=== PATIENT | female | born 1950 | race Caucasian/White ===

== ENCOUNTER 2017-11-16 12:38 | Observation (INO) | payer MEDICARE, SELFPAY ==
[2017-11-16] VITALS (13 sets, daily range): BP systolic 111–145; BP diastolic 50–104; PULSE 68–79; RESP 9–18; TEMP 36.3–36.8; O2SAT 93–99; BMI 41.3; BMI 39.6
--- NOTE | 2017-11-16 12:49 | EKG12_ITS ---
Test Reason : STROKE Blood Pressure : / mmHG Vent. Rate : 075 BPM Atrial Rate : 075 BPM P-R Int : 188 ms QRS Dur : 088 ms QT Int : 402 ms P-R-T Axes : 054 010 047 degrees QTc Int : 448 ms Normal sinus rhythm Normal ECG Confirmed by MIGUELINA ZAMORANO MD ([id number]), primer expeditor and drier LUKE SUN ([id number]) on 11/18/2017 3:46:33 PM Referred By: KARLENE Confirmed By:MIGUELINA ZAMORANO MD
--- NOTE | 2017-11-16 12:49 | CT_ITS ---
STUDY: CT BRAIN WITHOUT CONTRAST REASON FOR EXAM: Female, 67 years old. Sudden onset of weakness. Normal speech. Fatigue. RADIATION DOSAGE (If Supplied By Facility): CTDIvol = ( 44.99 ) mGy, DLP = ( 762.36 ) mGycm TECHNIQUE: Transaxial CT imaging of the brain was performed without administration of intravenous contrast material. Coronal and sagittal reconstructions were performed. Individualized dose optimization techniques were used for this CT. COMPARISON: None. FINDINGS: Normal soft tissue structures. Normal calvarium. Normal size ventricles and extra-axial spaces for the patient's age. Normal white matter tracts of the cerebral hemispheres. Normal basal ganglia and thalami. Normal brainstem. Normal cerebellum. There is no intracranial hemorrhage. There are no findings of an acute ischemic infarction. Normal visualized paranasal sinuses. CT/Brain/Head without Contrast IMPRESSION: Normal unenhanced CT scan of the brain at this time. N.B. : The above information has been verbally conveyed by Brooks Alvarez MD to Leena Jo, Referring Physician, on 11/16/2017 13:09:23 (ET). Electronically Signed: Brooks Alvarez MD at 13:08 EDT , Service support , N.B. : The above information has been verbally conveyed by Brooks Alvarez MD to Leena Jo, Referring Physician, on 11/16/2017 13:09:23 (ET).
--- NOTE | 2017-11-16 12:49 | CM.ED ---
Social Work Note Stroke alert called, no family present. Staff made aware to contact if they arrive. Maria Eugenia Alvarenga, POLISHING WHEEL REPAIRER, HELICOPTER TECHNICIAN
[2017-11-16 12:51] LABS: Bedside Glucose 86 mg/dL (70-110)
--- NOTE | 2017-11-16 13:00 | RAD_ITS ---
STUDY: X-RAY CHEST REASON FOR EXAM: Female, 67 years old. Shortness of breath. TECHNIQUE: AP upright portable view. COMPARISON: None. FINDINGS: Mild pulmonary hypoinflation. The lungs are clear. There is no demonstrated pleural abnormality. Cardiac size cannot be accurately evaluated. It is suspiciously mildly enlarged. Normal mediastinum and jailene. Normal visualized pulmonary arteries. Normal visualized aortic arch and descending thoracic aorta. Limited visualization of the thoracic spine. Normal visualized ribs, clavicles, and shoulders. There is no demonstrated abnormality of the visualized soft tissue structures of the upper abdomen. RAD/Chest 1 View IMPRESSION: No acute cardiopulmonary pathology. Electronically Signed: Brooks Alvarez MD at 14:10 EDT , Service support ,
[2017-11-16] MEDS: 0.9% Normal Saline 1,000 ML 100 ML IV (13:14)
[2017-11-16 13:19] LABS: Absolute Lymphocyte Count 1.15 X10^3/ul (0.83-4.51); Absolute Neutrophil Count 4.5 X10^3/uL (2.0-7.7); Basophil# 0.02 X10^3/uL; Basophil% 0.3 % (0-1); Eosinophil# 0.24 X10^3/uL; Eosinophils% 3.6 % (0-5); Hematocrit 39.2 % (37-47); Hemoglobin 12.2 g/dl (12.0-15.0); Lymphocyte # 1.15 X10^3/ul (4.0); Lymphocyte % 17.3 % (19-41); Mean Corp Hgb Conc 31.1 g/gl (32-36); Mean Corpuscular Hgb 28.3 pg (27.0-32.0); Mean Platelet Vol. 10.5 fl (6.2-12.0); Monocyte# 0.69 X10^3/uL; Monocyte% 10.4 % (0-10); Neutrophil # 4.52 X10^3/uL (2.7-7.7); Neutrophil % 68.2 % (47-70); Platelet Count 227 K/mm3 (150-450); RBC Distribution Width CV 13.5 % (11.6-14.6); Red Blood Count 4.31 M/mm3 (4.2-5.4); White Blood Count 6.6 K/mm3 (4.4-11.0)
[2017-11-16 13:20] LABS: POSITIVE COUNT NO; POSITIVE DIFFERENTIAL NO; POSITIVE MORPHOLOGY NO
[2017-11-16 13:22] LABS: International Normalized Ratio 0.9; Prothrombin Time (Protime)PT. 11.9 SECONDS (11.7-14.9)
[2017-11-16 13:23] LABS: Partial Thromboplast Time 30.9 Seconds (24.1-36.2)
[2017-11-16 13:31] LABS: Anion Gap 6 (5-15); BUN 16 mg/dL (7-18); BUN/Creat Ratio 22.8 RATIO (10-20); Calcium,Total 8.5 mg/dL (8.5-10.1); Chloride 106 mmol/L (98-107); EST Glomerular Filtration Rate 89 mL/min (>60); Est Glom Filt Rate - Afr Amer 107 mL/min (>60); Estimated Creatinine Clearance 51.81 ml/min; Glucose 85 mg/dL (74-106); Sodium Level 141 mmol/L (136-145)
[2017-11-16 14:54] LABS: Valproic Acid (Depakene) Level 38 ug/mL (50-100)
--- NOTE | 2017-11-16 15:00 | HP.PCM_ITS ---
Problem List (1) Altered mental status Status: Acute (2) BMI greater than 40 Status: Chronic (3) Chronic pain syndrome Status: Chronic (4) Dyslipidemia Status: Chronic (5) Essential (primary) hypertension Status: Chronic History of Present Illness Date of Admission: 11/16/17 Chief Complaint: Altered mental status The patient is a 67 year old F with past medical history significant for chronic pain syndrome, dyslipidemia, hypertension who was brought to the emergency department with altered mental status. There was an initial suspicion of acute CVA with patient having developed sudden onset of slurred speech while with friends and family. Patient was apparently not moving all her extremities when first presented to the ED. She was taken to CAT scan for subsequent evaluation where his speech apparently returned to normal and was able to move all extremities. Head CT obtained was negative for acute CVA. However patient was found to be going in and out of sleep while being interviewed. There was a suspicion of possible accidental drug overdose with patient being on narcotics and Flexeril. Admitted to a monitored bed for subsequent management. Past Medical History Past Medical History (Chronic Problems): Chronic Problems BMI greater than 40 (Chronic) Chronic pain syndrome (Chronic) Dyslipidemia (Chronic) Essential (primary) hypertension (Chronic) Allergies shellfish derived Allergy (Verified 11/16/17 13:10) Unknown tuberculin,PPD,multi-puncture Allergy (Verified 11/16/17 13:10) Unknown Home Medications: Ambulatory Orders Medication Instructions Recorded Albuterol IH (ProAir) [Proair Hfa 1 - 2 puff INHALATION Q4H PRN PRN 11/16/17 (SP)Vent Pts] Amlodipine Besylate [Norvasc] 10 mg PO DAILY 11/16/17 Amoxicillin [Amoxil] 500 mg PO Q12H 11/16/17 Benztropine Mesylate 0.5 mg PO BID 11/16/17 Cyclobenzaprine [Flexeril] 10 mg PO TID PRN PRN 11/16/17 Divalproex Sodium [Depakote] 500 mg PO BID 11/16/17 Divalproex Sodium [Divalproex 1,500 mg PO QHS 11/16/17 Sodium ER] Fluoxetine HCl 40 mg PO DAILY 11/16/17 Omeprazole [Prilosec] 20 mg PO DAILY 11/16/17 Oxycodone HCl [Oxycodone HCl ER] 15 mg PO TID PRN 11/16/17 Potassium 99 mg PO DAILY 11/16/17 Pregabalin [Lyrica] 100 mg PO TID 11/16/17 Ropinirole HCl [Requip] 3 mg PO DAILY 11/16/17 Simvastatin [Zocor] 20 mg PO QHS 11/16/17 Sumatriptan Succinate [Imitrex] 100 mg PO .X1 PRN PRN 11/16/17 Smoking Status: Never smoker - *Family History Maternal History Items: No pertinent history Review of Systems Unable to obtain accurate/complete ROS d/t: Patient being lethargic VTE Information - Inpt Only VTE Present on Admission: No VTE Mechan Device Prophylaxis: Knee High ELIZABETH Hose VTE Pharm Prophylaxis ordered?: Yes Patient Problems: Active and Suspected Problems Altered mental status (Acute) Objective: GENERAL: Lethargic but arousable HEENT: Clear conjunctiva, dry oral mucosa NECK; supple, normal thyroid, no distended JVD. CHEST: Clear to auscultation bilaterally, HEART: Regular S1 S2, no audible murmurs ABDOMEN: soft, non-tender, normoactive bowel sounds, RECTAL: deferred EXTREMITIES: No edema, no clubbing, no cyanosis. LOCKER ROOM ATTENDANT: Lethargic but arousable and able to move all extremities SKIN: No Rash - Physical Exam Vital Signs Temp Pulse Resp BP Pulse Ox 98.2 F 77 11 L 132/72 H 95 11/16/17 12:39 11/16/17 14:38 11/16/17 14:38 11/16/17 14:38 11/16/17 14:38 Oxygen Flow Rate (L/min) 2 Oxygen Delivery Method Nasal Cannula Weight: 116 kg Body Mass Index (BMI) 41.3 Finger Stick Blood Glucose 86 Laboratory Tests Past 24 Hrs 11/16/17 11/16/17 11/16/17 12:40 12:40 12:40 WBC 6.6 RBC 4.31 Hgb 12.2 Hct 39.2 MCV 91.0 MCH 28.3 MCHC 31.1 L RDW 13.5 RDW Differential 44.0 H Plt Count 227 MPV 10.5 Immature Gran % (Auto) 0.200 Neut % (Auto) 68.2 Lymph % (Auto) 17.3 L Tyler % (Auto) 10.4 H Eos % (Auto) 3.6 Baso % (Auto) 0.3 Absolute Neuts (auto) 4.5 Absolute Lymphs (auto) 1.15 Total Counted Not Reportable PT 11.9 INR 0.9 APTT 30.9 Sodium 141 Potassium 4.0 Chloride 106 Carbon Dioxide 29.0 Anion Gap 6 BUN 16 Creatinine 0.70 Estim Creat Clear Calc 51.81 Est GFR (MDRD) Af Amer 107 Est GFR (MDRD) Non-Af 89 BUN/Creatinine Ratio 22.8 H Glucose 85 Calcium 8.5 Troponin I < 0.015 Valproic Acid 11/16/17 12:40 WBC RBC Hgb Hct MCV MCH MCHC RDW RDW Differential Plt Count MPV Immature Gran % (Auto) Neut % (Auto) Lymph % (Auto) Tyler % (Auto) Eos % (Auto) Baso % (Auto) Absolute Neuts (auto) Absolute Lymphs (auto) Total Counted PT INR APTT Sodium Potassium Chloride Carbon Dioxide Anion Gap BUN Creatinine Estim Creat Clear Calc Est GFR (MDRD) Af Amer Est GFR (MDRD) Non-Af BUN/Creatinine Ratio Glucose Calcium Troponin I Valproic Acid Pending POC Glucose 11/16/17 12:42 POC Glucose 86 Assessment/Plan All Active Problems Altered mental status (Acute) Patient is a 67-year-old lady with past medical history significant for hypertension, dyslipidemia chronic pain syndrome presented with altered level of sensorium 1. Altered mental status suspected to be secondary to possible accidental drug overdose patient is on both narcotics as well as Flexeril the suspected offending medications were held on admission admitted to monitored bed for observation 2. Obesity with BMI of 41.3 3. Hypertension-blood pressure controlled, home medications continued with dose adjustment as needed 4. Dyslipidemia-patient is on statin therapy, continued at home dose 5. DVT prophylaxis SC Lovenox Code Visit OBSV E&M: 95856 Initial observation care L3
--- NOTE | 2017-11-16 17:36 | ED.VISSUMM ---
- ER Visit Summary Date of Service: 11/16/17 Chief Complaint: Weakness and speech difficulty History of Present Illness: The patient is a 67 F called as a stroke team from prehospital report. Patient reportedly was out shopping and developed fatigue, slurred speech, and left arm weakness. At the time of my examination patient denies acute pain. She states the only pain she has is from prior injuries which she always has. She denies headache. She denies nausea or vomiting. She states her arms and legs just feel very heavy and weak. She feels very tired and sleepy. Past history is later reviewed includes TIA, hypertension, high cholesterol, DVT, and hypothyroidism. Patient states she had had multiple surgeries because of her prior injuries. She states that she has plates and screws in her face. She has chronic numbness in her face and has difficulty smiling at baseline. She has chronic dry mouth. Physical Examination: Vital signs are unremarkable. Patient is lying in bed with her eyes closed. She will open to command. Head and neck examination unremarkable. Heart is regular rate and rhythm. Lung sounds are clear. Abdomen is soft nontender. Neuro exam at the time of my evaluation significant for an NIH score of 11. She receives 2 points each for right arm and left arm weakness. She receives 3 points each for right and left leg weakness. She receives one point for dysarthria. She does not appear to have any difficulty finding words. Test Results: EKG is sinus at 75 with no sign of acute ischemia. CT head is normal. Chest x-ray is unremarkable. CBC and chemistry studies are normal. Coags normal. Troponin is less than 0.015. Blood sugar on arrival was 86. Emergency Department Course and Treatment: Patient was sent to CT scan. Nursing cloth napping supervisor who accompanied her did state that her speech seemed to be normal in CT, but after coming back to the room was noted to be slurred again. On my repeat evaluation patient is falling asleep during the interview. At this time she moves all 4 extremities. At this time patient appears to be more fatigued as opposed to anything focal related to stroke. There may have been a mixup in her medication causing her excessive drowsiness. Patient be admitted for further workup. Treatment Plan: [] Disposition: Admit Impression: 1. Weakness 2. Slurred speech This note was generated with WePayation software. It may contain incorrect words, spelling, and punctuation that were not noted in review of the chart prior to signing ED Disposition - Plan for ED Patient: Disposition: Acute Care Hospital [facility] Chief Complaint: Neuro S/Sx
--- NOTE | 2017-11-16 17:40 | ED.DCSUM_ITS ---
- ER Visit Summary Date of Service: 11/16/17 Chief Complaint: Weakness and speech difficulty History of Present Illness: The patient is a 67 F called as a stroke team from prehospital report. Patient reportedly was out shopping and developed fatigue, slurred speech, and left arm weakness. At the time of my examination patient denies acute pain. She states the only pain she has is from prior injuries which she always has. She denies headache. She denies nausea or vomiting. She states her arms and legs just feel very heavy and weak. She feels very tired and sleepy. Past history is later reviewed includes TIA, hypertension, high cholesterol, DVT , and hypothyroidism. Patient states she had had multiple surgeries because of her prior injuries. She states that she has plates and screws in her face. She has chronic numbness in her face and has difficulty smiling at baseline. She has chronic dry mouth. Physical Examination: Vital signs are unremarkable. Patient is lying in bed with her eyes closed. She will open to command. Head and neck examination unremarkable. Heart is regular rate and rhythm. Lung sounds are clear. Abdomen is soft nontender. Neuro exam at the time of my evaluation significant for an NIH score of 11. She receives 2 points each for right arm and left arm weakness. She receives 3 points each for right and left leg weakness. She receives one point for dysarthria. She does not appear to have any difficulty finding words. Test Results: EKG is sinus at 75 with no sign of acute ischemia. CT head is normal. Chest x-ray is unremarkable. CBC and chemistry studies are normal. Coags normal. Troponin is less than 0.015. Blood sugar on arrival was 86. Emergency Department Course and Treatment: Patient was sent to CT scan. Nursing shoe repair supervisor who accompanied her did state that her speech seemed to be normal in CT, but after coming back to the room was noted to be slurred again. On my repeat evaluation patient is falling asleep during the interview. At this time she moves all 4 extremities. At this time patient appears to be more fatigued as opposed to anything focal related to stroke. There may have been a mixup in her medication causing her excessive drowsiness. Patient be admitted for further workup. Treatment Plan: [] Disposition: Admit Impression: 1. Weakness 2. Slurred speech This note was generated with fitkitation software. It may contain incorrect words, spelling, and punctuation that were not noted in review of the chart prior to signing ED Disposition - Plan for ED Patient: Disposition: Acute Care Hospital [facility] Chief Complaint: Neuro S/Sx
[2017-11-16 18:01] LABS: Alcohol, Blood (Medical)-Serum < 3.0 mg/dL
[2017-11-16 18:08] LABS: AST(SGOT) 13 U/L (15-37); Alanine Aminotransfer ALT/SGPT 15 U/L (13-56); Albumin, Serum 3.1 g/dL (3.2-5.0); Alkaline Phosphatase 91 U/L (45-117); Bilirubin, Direct 0.13 mg/dL (0.00-0.30); Globulin 3.2 g/dL (2.2-4.2); Protein, Total 6.3 g/dL (6.4-8.2); Thyroid Stim Hormone (TSH) 1.39 uIU/mL (0.358-3.74)
--- NOTE | 2017-11-16 18:59 | NURSING ---
Patient does know some of her medications. Called patient's pharmacy to have medication list faxed to hospital. Pharmacy is closed.
--- NOTE | 2017-11-16 19:25 | NURSING ---
Called pharmacy and spoke with Balbir to inform him that patient is unable to bring in Benztropine from home.
--- NOTE | 2017-11-16 19:34 | NURSING ---
Addendum entered by Xin Estrada 11/16/17 20:03: Pt reports numbness to face. Not new or different. States right shoulder weakness is worse today. Original Note: Per pt, nerve issues to face, not new. Also, pt reports issues with right shoulder, not new.
[2017-11-16] MEDS: Benztropine 2 MG Tablet 0.5 MG PO (21:54)
[2017-11-16] MEDS: Divalproex (ER) 250 MG Tablet 1500 MG PO (21:56)
[2017-11-16] MEDS: Atorvastatin Calcium 10 MG Tablet PO (21:57)
[2017-11-16] MEDS: Pramipexole Di-HCl 1 MG Tablet 6 MG PO (21:58)
[2017-11-16] MEDS: Pregabalin 50 MG Capsule PO (21:58)
[2017-11-17] VITALS (12 sets, daily range): BP systolic 122–160; BP diastolic 56–78; PULSE 74–94; RESP 12–18; TEMP 36.8–36.9; O2SAT 93–95; BMI 39.6
[2017-11-17] MEDS: Acetaminophen 325 MG Tablet 650 MG PO ×2 (05:34→11:28)
[2017-11-17] MEDS: Pregabalin 50 MG Capsule PO ×3 (05:34→21:02)
[2017-11-17 06:13] LABS: Anion Gap 7 (5-15); BUN 15 mg/dL (7-18); BUN/Creat Ratio 30.2 RATIO (10-20); Calcium,Total 8.4 mg/dL (8.5-10.1); Chloride 108 mmol/L (98-107); Cholesterol 171 mg/dL (200); EST Glomerular Filtration Rate 132 mL/min (>60); Est Glom Filt Rate - Afr Amer 160 mL/min (>60); Estimated Creatinine Clearance 51.81 ml/min; Glucose 95 mg/dL (74-106); High Density Lipoprotein 102 mg/dL; Potassium 4.1 mmol/L (3.5-5.1); Sodium Level 144 mmol/L (136-145); Triglycerides 134 mg/dL; Very Low Density Lipoprotein 27 mg/dL (5-40)
[2017-11-17] MEDS: Divalproex Sodium 125 MG SPRINKLE 500 MG PO ×2 (08:22→16:49)
[2017-11-17] MEDS: Aspirin E.C. 81 MG Tablet PO (08:23)
[2017-11-17] MEDS: Benztropine 2 MG Tablet 0.5 MG PO ×2 (08:23→21:00)
[2017-11-17] MEDS: Enoxaparin 40 MG/0.4 ML Syringe SC (08:23)
[2017-11-17] MEDS: FLUoxetine 20 MG Capsule 40 MG PO (08:24)
[2017-11-17] MEDS: amLODIPine 10 MG Tablet PO (08:24)
[2017-11-17] MEDS: Pantoprazole Sodium 20 MG Tablet PO (08:24)
--- NOTE | 2017-11-17 09:40 | PN_ITS ---
Patient Problems: Active and Suspected Problems Altered mental status (Acute) Subjective: Patient seen much more awake today. Did discuss with patient events leading to hospitalization which she had no recollection she however did mention about the fact that she had recently been started on anti-seizure medication on account of suspected seizure spells. Did order for old records from [facility] and consultation placed to neurology. Also did discuss with the patient may need to scale back on her narcotics and to discontinue the Flexeril Objective: GENERAL: Cooperative HEENT: Clear conjunctiva, dry oral mucosa NECK; supple, normal thyroid, no distended JVD. CHEST: Clear to auscultation bilaterally, HEART: Regular S1 S2, no audible murmurs ABDOMEN: soft, non-tender, normoactive bowel sounds, RECTAL: deferred EXTREMITIES: No edema, no clubbing, no cyanosis. HEAD CORRECTION OFFICER: Awake, no lateralizing signs SKIN: No Rash Vitals/I&O's: Vital Signs Temp Pulse Resp BP Pulse Ox 98.4 F 80 17 145/73 H 94 11/17/17 08:00 11/17/17 08:00 11/17/17 08:00 11/17/17 08:00 11/17/17 08:00 Oxygen Flow Rate (L/min) 2 Oxygen Delivery Method Room Air Weight: 111.5 kg Body Mass Index (BMI) 39.6 Intake and Output for Last 24 Hours 11/15/17 11/16/17 11/17/17 23:59 23:59 23:59 Intake Total 1300 / 1300 0 / 0 Balance 1300 / 1300 0 / 0 Laboratory Results 11/16/17 17:07: Total Bilirubin 0.40, Direct Bilirubin 0.13, AST 13 L, ALT 15, Alkaline Phosphatase 91, Troponin I < 0.015, Total Protein 6.3 L, Albumin 3.1 L , Globulin 3.2, TSH 1.39 11/16/17 17:07: Ethyl Alcohol < 3.0 11/16/17 20:20: Troponin I < 0.015 11/16/17 22:45: Troponin I < 0.015 11/17/17 05:12: Sodium 144, Potassium 4.1, Chloride 108 H, Carbon Dioxide 29.0, Anion Gap 7, BUN 15, Creatinine 0.50 L, Estim Creat Clear Calc 51.81, Est GFR ( MDRD) Af Amer 160, Est GFR (MDRD) Non-Af 132, BUN/Creatinine Ratio 30.2 H, Glucose 95, Calcium 8.4 L, Triglycerides 134, Cholesterol 171, LDL Cholesterol 42, VLDL Cholesterol 27, HDL Cholesterol 102 Current Medications Acetaminophen (Tylenol) 650 mg PO Q6H PRN PRN PRN Reason: PAIN Last Admin: 11/17/17 05:34 Dose: 650 mg Amlodipine Besylate (Norvasc) 10 mg PO DAILY [facility] Last Admin: 11/17/17 08:24 Dose: 10 mg Aspirin (Ecotrin) 81 mg PO DAILY@0800 [facility] Last Admin: 11/17/17 08:23 Dose: 81 mg Atorvastatin Calcium (Lipitor) 10 mg PO QHS [facility] Last Admin: 11/16/17 21:57 Dose: 10 mg Benztropine Mesylate (Cogentin) 0.5 mg PO BID [facility] Last Admin: 11/17/17 08:23 Dose: 0.5 mg Divalproex Sodium (Depakote Er) 1,500 mg PO QHS [facility] Last Admin: 11/16/17 21:56 Dose: 1,500 mg [facility] Admin: 11/17/17 08:22 Dose: 500 mg Enoxaparin Sodium (Lovenox) 40 mg SC DAILY@1000 [facility] Last Admin: 11/17/17 08:23 Dose: 40 mg Fluoxetine HCl (Prozac) 40 mg PO DAILY [facility] Last Admin: 11/17/17 08:24 Dose: 40 mg Magnesium Hydroxide (Milk Of Magnesia) 30 ml PO DAILY PRN PRN Reason: Constipation Pantoprazole Sodium (Protonix) 20 mg PO DAILY [facility] Last Admin: 11/17/17 08:24 Dose: 20 mg Pramipexole Dihydrochloride (Mirapex) 6 mg PO QHS [facility] Last Admin: 11/16/17 21:58 Dose: 6 mg Pregabalin (Lyrica) 50 mg PO TID [facility] Last Admin: 11/17/17 05:34 Dose: 50 mg Sodium Chloride () 5 - 30 ml IV UD PRN PRN Reason: SALINE FLUSH Medical Necessity - Tobacco Use Smoking Status: Never smoker Tobacco Use: Non-smoker Assessment/Plan All Active Problems Altered mental status (Acute) Patient is a 67-year-old lady with past medical history significant for hypertension, dyslipidemia chronic pain syndrome presented with altered level of sensorium 1. Altered mental status suspected to be secondary to possible accidental drug overdose patient is on both narcotics as well as Flexeril the suspected offending medications were held on admission admitted to monitored bed for observation MRI MRA ordered to rule out acute CVA. Consultation was also placed to neurology given patient history of underlying seizure 2. Disorder patient is on antiseizure medications discontinued. Also did request for old records from [place] 3. Hypertension-blood pressure controlled, home medications continued with dose adjustment as needed 4. Dyslipidemia-patient is on statin therapy, continued at home dose 5. Obesity with BMI of 41.3 6. DVT prophylaxis SC Lovenox Code Visit Inpatient E&M: 48113 Subs Hosp L3 OBSV E&M: 55515 Subsequent observation care L3
--- NOTE | 2017-11-17 12:50 | NURSING ---
RN called and spoke with pharmacist at [facility]. Patient does not get RA medication filled at that location. RN spoke to patient about this and patient states medications are only filled at [facility].
[2017-11-17] MEDS: oxyCODONE 5 MG Tablet PO (16:49)
[2017-11-17] MEDS: 0.9% NaCl Peripheral Flush Adult/Peds IV (16:55)
[2017-11-17] MEDS: Divalproex (ER) 250 MG Tablet 1500 MG PO (21:01)
[2017-11-17] MEDS: Atorvastatin Calcium 10 MG Tablet PO (21:02)
[2017-11-17] MEDS: Pramipexole Di-HCl 1 MG Tablet 6 MG PO (21:02)
[2017-11-18] VITALS (7 sets, daily range): BP systolic 135–150; BP diastolic 77–92; PULSE 75–92; RESP 16–20; TEMP 36.6–36.9; O2SAT 92–95; BMI 39.6
[2017-11-18] MEDS: Acetaminophen 325 MG Tablet 650 MG PO ×2 (00:36→10:32)
--- NOTE | 2017-11-18 00:36 | NURSING ---
Chronic numbness to face per pt.
[2017-11-18] MEDS: oxyCODONE 5 MG Tablet PO ×2 (04:42→10:54)
[2017-11-18] MEDS: Pregabalin 50 MG Capsule PO ×2 (05:26→15:00)
--- NOTE | 2017-11-18 08:00 | MRI_ITS ---
STUDY: MRA NECK WITH AND WITHOUT CONTRAST REASON FOR EXAM: Female, 67 years old. cva, lt arm weakness, altered mental status, slurred speech, hx seizure. TECHNIQUE: 3-D [id number] (TOF) imaging was performed in an 1.5 T MRI scanner. 10 ml of Gadavist was administered for the contrast enhanced images. COMPARISON: None. FINDINGS: RIGHT CAROTID ARTERIES: Normal right common carotid artery (CCA). There is suspected mild atherosclerotic plaque formation with minimal narrowing of the right carotid bulb. There is suspected mild atherosclerotic plaque formation of the origin of the right internal carotid artery with approximately 50% cross sectional diameter stenosis. Normal visualized cervical portion of the right internal carotid artery. Normal origin of the right external carotid artery (ECA). LEFT CAROTID ARTERIES: Normal left common carotid artery (CCA). Normal left common carotid bulb. Normal origin of the left internal carotid (ICA) artery without a hemodynamically significant stenosis. Normal visualized cervical portion of the left internal carotid artery. Normal origin of the left external carotid artery (ECA). VERTEBRAL ARTERIES: Normal antegrade flow within the bilateral vertebral artery without a hemodynamically significant stenosis. MRI/MRA Neck WITH and W/O Contrast IMPRESSION: Suspected 50% stenosis of the right ICA. Further evaluation with sonography can be obtained. Electronically Signed: Yina Magaña MD at 11:22 EDT Tel , Service support ,
--- NOTE | 2017-11-18 08:00 | MRI_ITS ---
STUDY: MRI BRAIN WITHOUT CONTRAST REASON FOR EXAM: Female, 67 years old. cva, lt arm weakness, altered mental status, slurred speech, hx seizure. TECHNIQUE: Standardized multiplanar fat and water weighted pulse sequences were obtained. COMPARISON: None. FINDINGS: Normal size of the ventricles and extra-axial spaces for the patient's age. Normal white matter tracts of the supratentorial brain. Normal bilateral basal ganglia. Normal thalami. There is no extra-axial fluid accumulation. Normal flow voids within the major intracranial circulation suggesting patency by spin echo criteria. Normal sella turcica, pituitary gland, infundibular stalk, optic chiasm and hypothalamus. Normal tectal plate and pineal gland. Normal midbrain, ginny and medulla. Normal cerebellum. Normal basal cisterns. Normal bilateral temporal bones. Normal bilateral internal auditory canals. No demonstrated orbital abnormality, within the constraints of a routine brain study. Normal visualized paranasal sinuses. Normal calvarium and skull base. Normal visualized soft tissue structures. Normal visualized upper cervical spine. MRI/Brain without Contrast IMPRESSION: Unremarkable unenhanced MRI of the brain. Electronically Signed: Yina Magaña MD at 11:08 EDT Tel , Service support ,
--- NOTE | 2017-11-18 08:00 | MRI_ITS ---
STUDY: MRA OF THE HEAD WITHOUT CONTRAST REASON FOR EXAM: Female, 67 years old. cva, lt arm weakness, altered mental status, slurred speech, hx seizure. TECHNIQUE: 3-D [id number]-tp-[id number] (TOF) imaging was performed with MIPs. The study was performed unenhanced. COMPARISON: None. FINDINGS: Normal bilateral petrous carotid arteries. Normal right cavernous carotid artery with a normal supraclinoid bifurcation. Normal left cavernous carotid artery with a normal supraclinoid bifurcation. Normal right A1 segments of the anterior cerebral artery. Normal left A1 segments of the anterior cerebral artery. Normal intact anterior communicating artery (ACOM). Normal bilateral A2 segments of the anterior cerebral arteries. Normal right M1 and M2 segments of the middle cerebral arteries, with a normal M1 bifurcation. Normal left M1 and M2 segments of the middle cerebral arteries, with a normal M1 bifurcation. Normal right posterior communicating artery (PCOM). Normal left posterior communicating artery (PCOM). Normal bilateral vertebral arteries. Normal basilar artery with a normal basilar bifurcation. The visualized bilateral superior cerebellar (SCA) arteries are normal. Normal bilateral P1, P2 and visualized P3 segments of the posterior cerebral arteries. There is no demonstrated aneurysm of the [place]. There is no major vessel occlusion or hemodynamically significant stenosis. There is no demonstrated abnormality of the visualized brain. MRI/MRA Head ONLY without Contrast IMPRESSION: Normal MRA of the head Electronically Signed: Yina Magaña MD at 11:16 EDT Tel , Service support ,
--- NOTE | 2017-11-18 09:52 | PCM.CONS.GEN ---
Reason for Consult Date of Consultation: 11/18/17 Reason for Consultation: altered mental status History of Present Illness: The patient is a 67 year old female admitted for spells. reports spells started 1 1/2 yrs ago. has history of head injury the last of which was 15 yrs ago. saw josefina yanes, started depakote, which was then discontinued for unclear reasons. spells then recurred two months ago, after being event free for one year. depakote restarted about 4 weeks ago with no apparent benefit. no apparent trigger. reports 10 min prior to the event feels weird and tired then has speech abnormality, then may lose consciousness. reports left leg trembles and bounces. also has intercurrent left lower extremity cellulitis treated intermittently for 6 months. reports the events are similar. no tongue biting or loss of continence. reports workup has included eeg and mri which was unrevealing including an extended home eeg monitoring. reports taking oxycontin (via pain management) but failed a urine alcohol test and has been told oxycontin will no longer be prescribed. reports doesnt drink. per admit h&p:The patient is a 67 year old F with past medical history significant for chronic pain syndrome, dyslipidemia, hypertension who was brought to the emergency department with altered mental status. There was an initial suspicion of acute CVA with patient having developed sudden onset of slurred speech while with friends and family. Patient was apparently not moving all her extremities when first presented to the ED. She was taken to CAT scan for subsequent evaluation where his speech apparently returned to normal and was able to move all extremities. Head CT obtained was negative for acute CVA. However patient was found to be going in and out of sleep while being interviewed. There was a suspicion of possible accidental drug overdose with patient being on narcotics and Flexeril. Admitted to a monitored bed for subsequent management. Past Medical History Past Medical History (Chronic Problems): Chronic Problems BMI greater than 40 (Chronic) Chronic pain syndrome (Chronic) Dyslipidemia (Chronic) Essential (primary) hypertension (Chronic) Allergies shellfish derived Allergy (Verified 11/16/17 13:10) Unknown tuberculin,PPD,multi-puncture Allergy (Verified 11/16/17 13:10) Unknown Home Medications: Ambulatory Orders Medication Instructions Recorded Albuterol IH (ProAir) [Proair Hfa 1 - 2 puff INHALATION Q4H PRN PRN 11/16/17 (SP)Vent Pts] Amlodipine Besylate [Norvasc] 10 mg PO DAILY 11/16/17 Amoxicillin [Amoxil] 500 mg PO Q12H 11/16/17 Benztropine Mesylate 0.5 mg PO BID 11/16/17 Cyclobenzaprine [Flexeril] 10 mg PO TID PRN PRN 11/16/17 Divalproex Sodium [Depakote] 500 mg PO BID 11/16/17 Divalproex Sodium [Divalproex 1,500 mg PO QHS 11/16/17 Sodium ER] Fluoxetine HCl 40 mg PO DAILY 11/16/17 Omeprazole [Prilosec] 20 mg PO DAILY 11/16/17 Oxycodone HCl [Oxycodone HCl ER] 15 mg PO TID PRN 11/16/17 Potassium 99 mg PO DAILY 11/16/17 Pregabalin [Lyrica] 100 mg PO TID 11/16/17 Ropinirole HCl [Requip] 3 mg PO DAILY 11/16/17 Simvastatin [Zocor] 20 mg PO QHS 11/16/17 Sumatriptan Succinate [Imitrex] 100 mg PO .X1 PRN PRN 11/16/17 traZODone [Desyrel] 100 mg PO QHS 11/16/17 Surgical History: - - 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 Smoking Status: Never smoker Tobacco Use: Non-smoker - *Family History Maternal History Items: No pertinent history Review of Systems Constitutional: Denies: Chills, Fever, Weight Change HEENT: Denies: Head Aches, Sinus Congestion, Sinus Drainage Cardiovascular: Denies: Chest Pain, Palpitations Respiratory: Denies: Cough, Shortness of breath at rest, Sputum production Gastrointestinal: Denies: Abdominal Pain, Nausea, Vomiting Genitourinary: Denies: Dysuria Musculoskeletal: Denies: Joint Pain, Joint Tenderness Skin: Denies: Rash, Wounds Neurological: Denies: Numbness, Tingling, Focal weakness Psychiatric: Denies: Anxiety, Depression, Homicidal Ideations, Suicidal Ideations Hematologic/ Lymphatic: Denies: Easy Bruising, Easy Bleeding Patient Problems: Active and Suspected Problems Altered mental status (Acute) - Physical Exam General: Alert, Oriented x3, Cooperative HEENT: Atraumatic, PERRLA, EOMI, Normocephalic Neurological: Cranial nerves II-XII grossly intact Psych/Mental Status: Normal Affect, Appropriate Vital Signs Temp Pulse Resp BP Pulse Ox 36.7 C 79 18 150/90 H 95 11/18/17 04:22 11/18/17 07:43 11/18/17 04:22 11/18/17 04:22 11/18/17 04:22 Oxygen Flow Rate (L/min) 2 Oxygen Delivery Method Room Air Weight: 111.5 kg Body Mass Index (BMI) 39.6 Intake and Output for Last 24 Hours 11/16/17 11/17/17 11/18/17 23:59 23:59 23:59 Intake Total 1300 / 1300 2071 / 2071 891 / 891 Balance 1300 / 1300 2071 891 / 891 Current Home Med List Medication Instructions Recorded Confirmed Type Albuterol IH (ProAir) [Proair Hfa 1 - 2 puff INHALATION Q4H PRN PRN 11/16/17 11/16/17 History (SP)Vent Pts] Amlodipine Besylate [Norvasc] 10 mg PO DAILY 11/16/17 11/16/17 History Amoxicillin [Amoxil] 500 mg PO Q12H 11/16/17 11/16/17 History Benztropine Mesylate 0.5 mg PO BID 11/16/17 11/16/17 History Cyclobenzaprine [Flexeril] 10 mg PO TID PRN PRN 11/16/17 11/16/17 History Divalproex Sodium [Depakote] 500 mg PO BID 11/16/17 11/16/17 History Divalproex Sodium [Divalproex 1,500 mg PO QHS 11/16/17 11/16/17 History Sodium ER] Fluoxetine HCl 40 mg PO DAILY 11/16/17 11/16/17 History Omeprazole [Prilosec] 20 mg PO DAILY 11/16/17 11/16/17 History Oxycodone HCl [Oxycodone HCl ER] 15 mg PO TID PRN 11/16/17 11/16/17 History Potassium 99 mg PO DAILY 11/16/17 11/16/17 History Pregabalin [Lyrica] 100 mg PO TID 11/16/17 11/16/17 History Ropinirole HCl [Requip] 3 mg PO DAILY 11/16/17 11/16/17 History Simvastatin [Zocor] 20 mg PO QHS 11/16/17 11/16/17 History Sumatriptan Succinate [Imitrex] 100 mg PO .X1 PRN PRN 11/16/17 11/16/17 History traZODone [Desyrel] 100 mg PO QHS 11/16/17 11/16/17 History Current Medications Generic Name Dose Route Start Last Admin Trade Name Freq PRN Reason Stop Dose Admin Acetaminophen 650 mg 11/17/17 04:26 11/18/17 00:36 Tylenol PO 650 mg Q6H PRN PRN Administration PAIN Amlodipine Besylate 10 mg 11/17/17 10:00 11/17/17 08:24 Norvasc PO 10 mg DAILY EVON Administration Aspirin 81 mg 11/17/17 08:00 11/17/17 08:23 Ecotrin PO 81 mg DAILY@0800 EVON Administration Atorvastatin Calcium 10 mg 11/16/17 22:00 11/17/17 21:02 Lipitor PO 10 mg QHS EVON Administration Benztropine Mesylate 0.5 mg 11/16/17 22:00 11/17/17 21:00 Cogentin PO 0.5 mg BID EVON Administration Divalproex Sodium 1,500 mg 11/16/17 22:00 11/17/17 21:01 Depakote Er PO 1,500 mg QHS EVON Administration Divalproex Sodium 500 mg 11/17/17 08:00 11/17/17 16:49 Depakote Sprinkles [facility] Administration Enoxaparin Sodium 40 mg 11/17/17 10:00 11/17/17 08:23 Lovenox SC 40 mg DAILY@1000 EVON Administration Fluoxetine HCl 40 mg 11/17/17 10:00 11/17/17 08:24 Prozac PO 40 mg DAILY EVON Administration Magnesium Hydroxide 30 ml 11/16/17 16:22 Milk Of Magnesia PO DAILY PRN Constipation Oxycodone HCl 5 mg 11/17/17 15:41 11/18/17 04:42 Oxyir PO 5 mg Q6H PRN PRN Administration PAIN Pantoprazole Sodium 20 mg 11/17/17 10:00 11/17/17 08:24 Protonix PO 20 mg DAILY EVON Administration Pramipexole Dihydrochloride 6 mg 11/16/17 22:00 11/17/17 21:02 Mirapex PO 6 mg QHS EVON Administration Pregabalin 50 mg 11/16/17 22:00 11/18/17 05:26 Lyrica PO 50 mg TID EVON Administration Sodium Chloride 5 - 30 ml 11/16/17 16:36 11/17/17 16:55 IV 10 ml UD PRN Administration SALINE FLUSH Assessment/Plan All Active Problems Altered mental status (Acute) seizure vs syncope, complicated history, confounded by narcotic use agrees to taper of narcotics flexeril taper if feasible continue depakote follow with dr yanes as planned.
--- NOTE | 2017-11-18 10:00 | NURSING ---
Vitals complete at this time. patient was off floor for MRI this AM, was then seen by Dr. Mota. Unable to get vitals until this time.
[2017-11-18] MEDS: Benztropine 2 MG Tablet 0.5 MG PO (10:32)
[2017-11-18] MEDS: Pantoprazole Sodium 20 MG Tablet PO (10:33)
[2017-11-18] MEDS: Divalproex Sodium 125 MG SPRINKLE 500 MG PO (10:33)
[2017-11-18] MEDS: Enoxaparin 40 MG/0.4 ML Syringe SC (10:33)
[2017-11-18] MEDS: FLUoxetine 20 MG Capsule 40 MG PO (10:33)
[2017-11-18] MEDS: amLODIPine 10 MG Tablet PO (10:33)
[2017-11-18] MEDS: Aspirin E.C. 81 MG Tablet PO (10:33)
--- NOTE | 2017-11-18 14:00 | DCINST_ITS ---
- Discharge Diagnoses Current Active Problems: Current Active and Chronic Problems Altered mental status (Acute) BMI greater than 40 (Chronic) Chronic pain syndrome (Chronic) Dyslipidemia (Chronic) Essential (primary) hypertension (Chronic) You will use the following diet at home:: No restrictions Your food should be the consistency of: Regular Your liquids should be the consistency of: Regular/Thin Discharge Activity: Return to Normal Activity, May Not Drive - until ok'd by Dr. Escudero. Call your doctor if you observe: - - confusion. unresponsiveness. Allergies/Adverse Reactions: Allergies shellfish derived Allergy (Verified 11/16/17 13:10) Unknown tuberculin,PPD,multi-puncture Allergy (Verified 11/16/17 13:10) Unknown Medications to take at Discharge Albuterol IH (ProAir) [Proair Hfa] 1 - 2 puff INHALATION Q4H PRN PRN 11/16/17 Amlodipine Besylate [Norvasc] 10 mg PO DAILY 11/16/17 Benztropine Mesylate 0.5 mg PO BID 11/16/17 Divalproex Sodium [Depakote] 500 mg PO BID 11/16/17 Divalproex Sodium [Divalproex Sodium ER] 1,500 mg PO QHS 11/16/17 Fluoxetine HCl 40 mg PO DAILY 11/16/17 Omeprazole [Prilosec] 20 mg PO DAILY 11/16/17 Potassium 99 mg PO DAILY 11/16/17 Pregabalin [Lyrica] 100 mg PO TID 11/16/17 Ropinirole HCl [Requip] 3 mg PO DAILY 11/16/17 Simvastatin [Zocor] 20 mg PO QHS 11/16/17 Sumatriptan Succinate [Imitrex] 100 mg PO .X1 PRN PRN 11/16/17 traZODone [Desyrel] 100 mg PO QHS 11/16/17 Oxycodone HCl [Oxycodone HCl ER] 15 mg PO DAILY PRN 1 Days #1 11/18/17 Primary Care Physician: Care Physician,No Primary [Primary Care Provider] - Test Results: Test results from this visit will be discussed in further detail at your follow- up appointment, if applicable. Please Follow Up With: Dr. Anthony Escudero When: 2-4 weeks Proposed Discharge Date: 11/18/17
--- NOTE | 2017-11-18 14:05 | PCM.DC.SUM ---
Discharge Date and Diagnosis - Problem List Patient Problems: Active and Suspected Problems Altered mental status (Acute) Date of Admission: 11/16/17 Date of Discharge: 11/18/17 - Primary Discharge Diagnosis Active and Suspected Problems Altered mental status (Acute) - Secondary Discharge Diagnosis Chronic Problems BMI greater than 40 (Chronic) Chronic pain syndrome (Chronic) Dyslipidemia (Chronic) Essential (primary) hypertension (Chronic) Hospital Course and Treatment Imaging Results: 11/18/17 08:00 Brain without Contrast [MRI] Stat MRA Head ONLY without Contrast [MRI] Stat MRA Neck WITH and W/O Contrast [MRI] Stat Clinical Impression(s) from Imaging Studies Brain CT 11/16/17 12:49 IMPRESSION: Normal unenhanced CT scan of the brain at this time. N.B. : The above information has been verbally conveyed by Brooks Alvarez MD to Leena Jo, Referring Physician, on 11/16/2017 13:09:23 (ET). Electronically Signed: Brooks Alvarez MD at 13:08 EDT , Service support , N.B. : The above information has been verbally conveyed by Brooks Alvarez MD to Leena Jo, Referring Physician, on 11/16/2017 13:09:23 (ET). Chest X-Ray 11/16/17 13:00 IMPRESSION: No acute cardiopulmonary pathology. Electronically Signed: Brooks Alvarez MD at 14:10 EDT , Service support , Brain MRI 11/18/17 08:00 IMPRESSION: Unremarkable unenhanced MRI of the brain. Electronically Signed: Yina Magaña MD at 11:08 EDT Tel , Service support , Head MRA 11/18/17 08:00 IMPRESSION: Normal MRA of the head Electronically Signed: Yina Magaña MD at 11:16 EDT Tel , Service support , Neck MRA 11/18/17 08:00 IMPRESSION: Suspected 50% stenosis of the right ICA. Further evaluation with sonography can be obtained. Electronically Signed: Yina Magaña MD at 11:22 EDT Tel , Service support , Operations: None Procedures: None Summary of Care Provided: The patient is a 67 year old F presents with change in mental status. Patient developed slurred speech with family. Patient was not moving all her extremities apparently patient was admitted and underwent a neurologic workup that included an MRI, MRA of the head neck. All those tests were negative. Patient was seen in consultation by Dr. Mota, of neurology. His feeling is that the patient may toxic encephalopathy possibly related with her medications or possible seizure given her history. The recommendation has been made to taper her medications. I discussed with patient about stopping her Flexeril altogether and to wean her oxycodone to off. Patient was in agreement to that plan. Patient already has an established neurologist, Dr. Anthony Escudero, to whom she will follow-up with in the next 2-4 weeks. Given the fact that we cannot rule out a seizure patient is advised to avoid driving until formally cleared by her neurologist. On exam, patient is no acute distress and afebrile. She has a normal gait. She is alert and oriented ?3. [] Discharge Diet: No Restrictions Discharge Activity: Return to Normal Activity, May Not Drive - until ok'd by Dr. Escudero. Call your doctor if you observe: - - confusion. unresponsiveness. Home Medications: Medications to take at Discharge Albuterol IH (ProAir) [Proair Hfa] 1 - 2 puff INHALATION Q4H PRN PRN 11/16/17 Amlodipine Besylate [Norvasc] 10 mg PO DAILY 11/16/17 Benztropine Mesylate 0.5 mg PO BID 11/16/17 Divalproex Sodium [Depakote] 500 mg PO BID 11/16/17 Divalproex Sodium [Divalproex Sodium ER] 1,500 mg PO QHS 11/16/17 Fluoxetine HCl 40 mg PO DAILY 11/16/17 Omeprazole [Prilosec] 20 mg PO DAILY 11/16/17 Potassium 99 mg PO DAILY 11/16/17 Pregabalin [Lyrica] 100 mg PO TID 11/16/17 Ropinirole HCl [Requip] 3 mg PO DAILY 11/16/17 Simvastatin [Zocor] 20 mg PO QHS 11/16/17 Sumatriptan Succinate [Imitrex] 100 mg PO .X1 PRN PRN 11/16/17 traZODone [Desyrel] 100 mg PO QHS 11/16/17 Oxycodone HCl [Oxycodone HCl ER] 15 mg PO DAILY PRN 1 Days #1 11/18/17 Primary Care Physician: Care Physician,No Primary [Primary Care Provider] - Please Follow Up With: Dr. Anthony Escudero When: 2-4 weeks Disposition: Home Minutes spent on discharge:: 32 Patient Condition:: Good Medical Necessity - Tobacco Use Smoking Status: Never smoker Tobacco Use: Non-smoker Meaningful Use Info Meaningful Use Diagnoses (Choose all that apply): None applicable Code Visit Inpatient E&M: 24749 Disch Hosp
--- NOTE | 2017-11-18 14:09 | DS.PCM_ITS ---
Discharge Date and Diagnosis - Problem List Patient Problems: Active and Suspected Problems Altered mental status (Acute) Date of Admission: 11/16/17 Date of Discharge: 11/18/17 - Primary Discharge Diagnosis Active and Suspected Problems Altered mental status (Acute) - Secondary Discharge Diagnosis Chronic Problems BMI greater than 40 (Chronic) Chronic pain syndrome (Chronic) Dyslipidemia (Chronic) Essential (primary) hypertension (Chronic) Hospital Course and Treatment Imaging Results: 11/18/17 08:00 Brain without Contrast [MRI] Stat MRA Head ONLY without Contrast [MRI] Stat MRA Neck WITH and W/O Contrast [MRI] Stat Clinical Impression(s) from Imaging Studies Brain CT 11/16/17 12:49 IMPRESSION: Normal unenhanced CT scan of the brain at this time. N.B. : The above information has been verbally conveyed by Brooks Alvarez MD to Leena Jo, Referring Physician, on 11/16/2017 13:09:23 (ET). Electronically Signed: Brooks Alvarez MD at 13:08 EDT , Service support , N.B. : The above information has been verbally conveyed by Brooks Alvarez MD to Leena Jo, Referring Physician, on 11/16/2017 13:09:23 (ET). Chest X-Ray 11/16/17 13:00 IMPRESSION: No acute cardiopulmonary pathology. Electronically Signed: Brooks Alvarez MD at 14:10 EDT , Service support , Brain MRI 11/18/17 08:00 IMPRESSION: Unremarkable unenhanced MRI of the brain. Electronically Signed: Yina Magaña MD at 11:08 EDT Tel , Service support , Head MRA 11/18/17 08:00 IMPRESSION: Normal MRA of the head Electronically Signed: Yina Magaña MD at 11:16 EDT Tel , Service support , Neck MRA 11/18/17 08:00 IMPRESSION: Suspected 50% stenosis of the right ICA. Further evaluation with sonography can be obtained. Electronically Signed: Yina Magaña MD at 11:22 EDT Tel , Service support , Operations: None Procedures: None Summary of Care Provided: The patient is a 67 year old F presents with change in mental status. Patient developed slurred speech with family. Patient was not moving all her extremities apparently patient was admitted and underwent a neurologic workup that included an MRI, MRA of the head neck. All those tests were negative. Patient was seen in consultation by Dr. Mota, of neurology. His feeling is that the patient may toxic encephalopathy possibly related with her medications or possible seizure given her history. The recommendation has been made to taper her medications. I discussed with patient about stopping her Flexeril altogether and to wean her oxycodone to off. Patient was in agreement to that plan. Patient already has an established neurologist, Dr. Anthony Escudero, to whom she will follow-up with in the next 2-4 weeks. Given the fact that we cannot rule out a seizure patient is advised to avoid driving until formally cleared by her neurologist. On exam, patient is no acute distress and afebrile. She has a normal gait. She is alert and oriented ?3. [] Discharge Diet: No Restrictions Discharge Activity: Return to Normal Activity, May Not Drive - until ok'd by Dr. Escudero. Call your doctor if you observe: - - confusion. unresponsiveness. Home Medications: Medications to take at Discharge Albuterol IH (ProAir) [Proair Hfa] 1 - 2 puff INHALATION Q4H PRN PRN 11/16/17 Amlodipine Besylate [Norvasc] 10 mg PO DAILY 11/16/17 Benztropine Mesylate 0.5 mg PO BID 11/16/17 Divalproex Sodium [Depakote] 500 mg PO BID 11/16/17 Divalproex Sodium [Divalproex Sodium ER] 1,500 mg PO QHS 11/16/17 Fluoxetine HCl 40 mg PO DAILY 11/16/17 Omeprazole [Prilosec] 20 mg PO DAILY 11/16/17 Potassium 99 mg PO DAILY 11/16/17 Pregabalin [Lyrica] 100 mg PO TID 11/16/17 Ropinirole HCl [Requip] 3 mg PO DAILY 11/16/17 Simvastatin [Zocor] 20 mg PO QHS 11/16/17 Sumatriptan Succinate [Imitrex] 100 mg PO .X1 PRN PRN 11/16/17 traZODone [Desyrel] 100 mg PO QHS 11/16/17 Oxycodone HCl [Oxycodone HCl ER] 15 mg PO DAILY PRN 1 Days #1 11/18/17 Primary Care Physician: Care Physician,No Primary [Primary Care Provider] - Please Follow Up With: Dr. Antohny Escudero When: 2-4 weeks Disposition: Home Minutes spent on discharge:: 32 Patient Condition:: Good Medical Necessity - Tobacco Use Smoking Status: Never smoker Tobacco Use: Non-smoker Meaningful Use Info Meaningful Use Diagnoses (Choose all that apply): None applicable Code Visit Inpatient E&M: 03291 Disch Hosp
== END 2017-11-18 13:59 | disposition home or self-care (01) ==
LOC: ED 14:20 → PCU 15:03
PROVIDERS: Admitting Provider Internal Medicine; Emergency Provider Emergency Medicine
DX: R41.82 Altered mental status, unspecified (principal); E78.5 Hyperlipidemia, unspecified; I10 Essential (primary) hypertension; E66.9 Obesity, unspecified; Z68.41 Body mass index [BMI] 40.0-44.9, adult; Z71.3 Dietary counseling and surveillance; G89.4 Chronic pain syndrome; Z79.899 Other long term (current) drug therapy; R47.81 Slurred speech; Z87.820 Personal history of traumatic brain injury; R53.1 Weakness; Z86.718 Personal history of other venous thrombosis and embolism; R20.0 Anesthesia of skin; R47.1 Dysarthria and anarthria
CPT/HCPCS: 36415; 70450; 70544; 70549; 70551; 71045; 80048; 80061; 80076; 80164; 80320; 82962; 84443; 84484; 85025; 85610; 85730; 92523; 93005; 96360; 96361; 96372; 97162; 97166; 97802; 99218; 99285; A9585; Q9957; A4216; G0378; G0480